=== PATIENT | male | born 1955 ===

== ENCOUNTER 2021-10-05 05:30 | Day surgery (SDC) | payer OTHER ==
[~2021-10-05 05:30] MED LIST: CLONAZEPAM1 MG PO; DIOVAN40 MG PO; LEVOTHYROXINE25 MCG PO; LIPITOR40 MG PO; METFORMIN HCL500 M3 PO; NORVASC5 MG PO; PROTONIX40 MG PO; RESTORIL7.5 MG PO
== END 2021-10-05 12:50 | disposition home or self-care (01) ==
LOC: CIR.AMB 05:30
PROVIDERS: ATTEND Specialist
DX: K42.9 Umbilical hernia without obstruction or gangrene (principal); I10 Essential (primary) hypertension; E78.5 Hyperlipidemia, unspecified; E11.9 Type 2 diabetes mellitus without complications; F41.9 Anxiety disorder, unspecified; E66.9 Obesity, unspecified; Z79.84 Long term (current) use of oral hypoglycemic drugs

== ENCOUNTER 2023-03-18 06:30 | Day surgery (SDC) | payer OTHER ==
[~2023-03-18] VITALS: Ht 175.3 cm; Wt 97.5 kg
[2023-03-18] MEDS ORDERED: NEURONTIN300 MG PO (10:23)
[2023-03-18] MEDS ORDERED: PERCOCET 5-3251 EACH PO (10:23)
[2023-03-18] MEDS ORDERED: KETO10TA2 PO (10:24)
[2023-03-18] MEDS ORDERED: DERMOPLAST PAIN78 GM TOP (10:24)
== END 2023-03-18 14:35 | disposition home or self-care (01) ==
LOC: CIR.AMB 06:30
PROVIDERS: ATTEND Surgery
DX: K62.5 Hemorrhage of anus and rectum (principal); K64.4 Residual hemorrhoidal skin tags; K64.8 Other hemorrhoids; Z20.822 Contact with and (suspected) exposure to COVID-19